=== PATIENT | female | born 1965 | race Caucasian/White ===

== ENCOUNTER → 2022-09-09 16:28 | Outpatient (REF) | payer BC, SELFPAY | LOC: CLAB 16:28 | PROVIDERS: ATTENDING PHYSICIAN Orthopaedic Surgery Hand Surgery | DX: M67.441 Ganglion, right hand (principal) | CPT/HCPCS: 88304 ==

== ENCOUNTER 2024-09-26 06:27 | Day surgery (SDC) | payer BC, SELFPAY | END 2024-09-26 11:20 | disposition home or self-care (01) | LOC: GI 06:27 | PROVIDERS: ATTENDING PHYSICIAN Internal Medicine Gastroenterology | DX: Z12.11 Encounter for screening for malignant neoplasm of colon (principal); K63.89 Other specified diseases of intestine; K62.89 Other specified diseases of anus and rectum; K64.0 First degree hemorrhoids | CPT/HCPCS: 45380; 88305 ==

== ENCOUNTER 2025-03-25 08:15 | Emergency (ER) | payer BC, SELFPAY ==
[2025-03-25 08:16] VITALS: BP 105/63
[2025-03-25 08:51] LABS: Hematocrit 43.1 % (37.0-47.0); Hemoglobin 14.5 g/dL (12.0-16.0); Mean Corp Hgb Conc. 33.6 g/dL (33.0-37.0); Mean Corpuscular Volume 95.4 fL (81.0-99.0); Nucleated Red Blood Cells % 0 %; Platelet Count 275 10^3/uL (130-400); Red Cell Dist. Width 12.5 % (11.5-14.5)
[2025-03-25 09:05] LABS: Blood Urea Nitrogen 19 mg/dl (7-17); Calcium 9.4 mg/dl (8.4-10.2); Carbon Dioxide 28 mmol/L (22-30); Chloride 104 mmol/L (98-107); Glucose 107 mg/dl (70-99); Sodium 139 mmol/L (135-145); eGFR > 60.00
[2025-03-25 09:15] LABS: Troponin I < 0.012 ng/ml
[2025-03-25 09:38] VITALS: BMI 27.5
[2025-03-25 09:39] VITALS: BP 115/65
[2025-03-25 10:00] VITALS: BP 111/63
--- NOTE | 2025-03-25 10:02 | ED.GENMED ---
History of Present Illness
General
Chief Complaint: Chest Problem
Source: patient
Exam Limitations: none
Time Seen by Provider: 03/25/25 10:01
Nursing documentation reviewed up to this point in time: agreed with
History of Present Illness
History of Present Illness:
59-year-old female with history of migraines, right breast cancer with mastectomy 2014, presents for pain under her left breast. She states she woke up 'fine,' and that she was up and around 3 sharp pain under her left breast which made her feel
like she couldn't take a deep breath due to the pain got worse, pain radiated down chest wall. She broke out in a sweat. She states it was 'really bad for an hour,' but has calmed down now. It was 7-8 but now 3/10. She took 4 baby aspirin
prior to coming here. Denies SOB, abd pain, dizziness, lightheadedness, n/v/d/c.
She was pulling a wagon yesterday with the 3-year-old and it.
Past History
Past History
ED Past Medical History: Cancer (R breast) and Hypothyroidism
ED Past Surgical History: Gynecological (Mastectomy with reconstruction 2014)
Social History
Tobacco: Non-smoker
Alcohol: None
Drug: None
Personal:
Living: with family
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
Family History
Family History: Negative Early CAD or CAD
Review of Systems
Review of Systems
Allergies reviewed?: Yes
All Other Systems: ROS reviewed and negative except as documented in HPI and ROS
Phy Exam
Physical Exam
Physical Exam:
GENERAL: No acute distress. A&Ox3.
CONSTITUTIONAL: Afebrile.
EYES: clear, conjunctivae normal
ENMT: moist mucus membranes, Pharynx nl
RESPIRATORY: Regular respirations, nonlabored, lungs clear.
CARDIOVASCULAR: Regular rate and rhythm, no murmurs, no rubs.
GI: Soft, nontender, normal BS
MUSCULOSKELETAL: Moves with ease. Well perfused. Unable to reproduce chest pain with palpation
SKIN: Warm, dry, pink
PSYCH: Normal mood and affect. Well kept, interactive and appropriate
NEUROLOGIC: Awake, alert and oriented. No focal neurological deficits
Course
Orders/Labs/Results
Orders:
Orders
03/25/25 08:19
EKG [Electrocardiogram (*1)] Urgent
Reason for Study: Abdominal Pain
03/25/25 08:20
EKG- Treatment ONCE
03/25/25 08:29
Basic Metabolic Panel Urgent
Complete Blood Count/With Diff Urgent
Troponin I Urgent
03/25/25 10:08
CR Chest - 2 Views Urgent
Comment:
Reason For Exam: pain under left breast
03/25/25 11:26
Troponin I Urgent
Abnormal Lab Results
03/25/25
08:29
MCH 32.1 H pg
(27.0-31.0)
Absolute Lymphs (auto) 1.1 L 10^3/uL
(1.2-3.4)
Monocytes % 10.9 H %
(1.7-9.3)
BUN 19 H mg/dl
(7-17)
Glucose 107 H mg/dl
(70-99)
03/25/25 08:29
03/25/25 08:29
Vital Signs
Initial and Last Documented VS:
Initial Vital Signs
Temp Resp BP Pulse Ox
98.6 F 18 105/63 97
03/25/25 08:16 03/25/25 08:16 03/25/25 08:16 03/25/25 08:16
Last Documented Vital Signs
Temp Pulse Resp BP Pulse Ox
98.2 F 61 16 117/70 98
03/25/25 12:23 03/25/25 12:23 03/25/25 12:23 03/25/25 12:23 03/25/25 12:23
MDM/Problems Addressed
Differential Diagnosis Includes:
musculoskeletal pain, ACS
MDM/Problems Addressed:
59-year-old female with history of migraines, right breast cancer with mastectomy 2014, presents for pain under her left breast. She states she woke up 'fine,' and that she was up and around 3 sharp pain under her left breast which made her feel
like she couldn't take a deep breath due to the pain got worse, pain radiated down chest wall. She broke out in a sweat. She states it was 'really bad for an hour,' but has calmed down now. It was 7-8 but now 3. She took 4 baby aspirin
prior to coming here. Denies SOB, abd pain, dizziness, lightheadedness, n/v/d/c.
She was pulling a wagon yesterday with the 3-year-old and it.
EKG: NSR
CBC normal
CMP normal
Follow-up 11:10 AM
patient's symptoms are resolving. Most likely musculoskeletal pain from pulling wagon yesterday
Chest x-ray NAD
12:10 p.m.
Troponin #2 WNL
Stable for discharge .
*Pulse Oximetry
SaO2: 99
Oxygen Mode of Delivery: Room air
Patient hypoxic: no
*EKG
EKG Intrepretation Date: 03/25/25
Interpretation: normal
Heart Rate: 62
Rate: normal
Rhythm: sinus
Comstock: normal axis
QRS Pattern: normal QRS
Ischemia: non-specific ST changes
*Critical Care Note
Total Time (30-74mins, 75-104mins- exclusive of procedures): Not Applicable
ED Attending Note
-
Portions of this chart may have been created with voice recognition software.� Occasional wrong word or��sound alike� substitutions may have occurred due to the inherent limitations of voice recognition software.
Discharge Plan
Departure
Patient Disposition: Home (Routine Discharge)
Date of Disposition: 03/25/25
Time of Disposition: 12:19
Patient with high blood pressure during this ER visit?: No
Condition: Good
Discharge Problem:
Chest pain in adult, Musculoskeletal pain
Instructions: Overuse Injuries (DC), Chest pain, Musculoskeletal Pain
Prescriptions:
No Action
escitalopram oxalate 10 MG tablet
10 mg PO QPM
multivitamin [Daily Multiple] 1 EACH tablet
1 ea PO DAILY
anastrozole 1 MG tablet
1 mg PO DAILY
Referrals:
Keith Yancey MD [Active, Family Practice] - As needed
UNKNOWN - PT DOES,NOT KNOW [Family Provider]
Activity Restrictions/Additional Instructions:
As we discussed, your workup here today shows nothing worrisome, specifically no indication of damage to your heart or lungs this is most likely
Overuse from pulling the wagon yesterday.
Tylenol or ibuprofen as needed for pain heating pad may help.,
Interventions
Interventions:
*Risk Screen - Suicide Last Done: 03/25/25 09:38
*General Assessment Last Done: 03/25/25 09:42
*Neglect/Abuse Screening Last Done: 03/25/25 09:38
*ED- Fall Risk Assessment Last Done: 03/25/25 09:38
*ED COVID-19 Vaccine History Last Done: 03/25/25 09:38
*ED Influenza Vaccine History Last Done: 03/25/25 09:38
*Nursing Disposition Last Done: 03/25/25 12:23
ED- Cardiac Assessment Last Done: 03/25/25 09:38
ED- Pulmonary Assessment Last Done: 03/25/25 09:38
Discharge Date and Time
Discharge Date/Time: 03/25/25 12:25
Print Language: MOZAMBICAN
[2025-03-25 11:21] VITALS: BP 117/70
[2025-03-25 12:08] LABS: Troponin I < 0.012 ng/ml
--- NOTE | 2025-03-25 12:22 | EDRN ---
Reviewed discharge instructions with patient. Verbalized understanding.
[2025-03-25 12:23] VITALS: BP 117/70
== END 2025-03-25 12:25 | disposition home or self-care (01) ==
LOC: EMR 08:15
PROVIDERS: Emergency Medicine; Registered Nurse; EMERGENCY PHYSICIAN Emergency Medicine
DX: R07.89 Other chest pain (principal); E03.9 Hypothyroidism, unspecified; Z85.3 Personal history of malignant neoplasm of breast; Z90.11 Acquired absence of right breast and nipple
CPT/HCPCS: 99284; 71046; 80048; 84484; 85025; 93005